=== PATIENT | female | born 1980 ===

== ENCOUNTER 2020-04-03 09:22 | Day surgery (SDC) | payer OTHER ==
[~2020-04-03] VITALS: Ht 165.1 cm; Wt 75.9 kg
--- NOTE | 2020-04-03 10:06 | NUR ---
04/03/20 1006 Carlene Lopez History, Chart, Medications and Allergies reviewed before start of procedure.Patient confirms NPO status and agrees with scheduled surgery.PATIENT DETERMINED TO BE ASA APPROPRIATE FOR PROPOFOL SEDATION PRIOR TO START OF PROCEDURE BY .3-LEAD EKG REVIEWED WITH PHYSICIAN PRIOR TO START OF PROCEDURE.MONITOR INTACT WITH CONTINUOUS PULSE OXIMETRY AND INTERMITTENT BP.
== END 2020-04-03 22:52 | disposition home or self-care (01) ==
LOC: ORD 09:22 → ORSCMMR 09:22 → ORD 10:30
PROVIDERS: Internal Medicine Gastroenterology
PROC: 0DBK8ZX Excision of Ascending Colon, Via Natural or Artificial Opening Endoscopic, Diagnostic (ICD-10-PCS; principal; 2020-04-03 10:30)
PROC: 0DBP8ZX Excision of Rectum, Via Natural or Artificial Opening Endoscopic, Diagnostic (ICD-10-PCS; principal; 2020-04-03 10:30)
PROC: 0DBM8ZX Excision of Descending Colon, Via Natural or Artificial Opening Endoscopic, Diagnostic (ICD-10-PCS; principal; 2020-04-03 10:30)
DX: Z12.11 Encounter for screening for malignant neoplasm of colon (principal); Z80.0 Family history of malignant neoplasm of digestive organs; D12.2 Benign neoplasm of ascending colon; D12.4 Benign neoplasm of descending colon; D12.8 Benign neoplasm of rectum
CPT/HCPCS: 88305; J2250; J2704; J7120

== ENCOUNTER → 2020-06-15 | Outpatient (CLI) | payer OTHER ==
[2020-06-20 16:10] LABS: HPV 16 Negative (Negative); HPV 18 Negative (Negative); HPV OTHER HR TYPES Negative (Negative)
== END | disposition home or self-care (01) ==
LOC: LAB 19:00 → LAB SHORT 19:00
PROVIDERS: Physician Assistant
DX: Z01.419 Encounter for gynecological examination (general) (routine) without abnormal findings (principal)
CPT/HCPCS: 87624; G0123